=== PATIENT | female | born 1950 | race Caucasian/White ===

== ENCOUNTER 2022-02-27 15:00 | Inpatient (IN) | payer MEDICARE ==
[~2022-02-27] VITALS: Ht 162.6 cm; Wt 50.8 kg
--- NOTE | 2022-02-27 15:31 | NUR ---
CALLED ART [phone]
--- NOTE | 2022-02-27 15:32 | NUR ---
Received pt 71 yrs female here for medicale clearance awake fallow command
--- NOTE | 2022-02-27 15:54 | NUR ---
MOVE SHEET SUBMITTED.
--- NOTE | 2022-02-27 16:03 | NUR ---
GOT BED 215-A
--- NOTE | 2022-02-27 16:07 | NUR ---
COVED SWAB SENT TO LAB
[2022-02-27 16:19] LABS: BASOPHILS % (AUTO) 0.6 % (0.0-2.0); EOSINOPHILS % (AUTO) 1.1 % (0.0-6.0); HEMATOCRIT 46 % (33-45); HEMOGLOBIN 15.3 g/dL (11.5-14.8); LYMPHOCYTES # (AUTO) 1.9 K/uL (0.8-4.8); LYMPHOCYTES % (AUTO) 30.6 % (20.0-44.0); MEAN CORPUSCULAR HGB CONC 34 g/dl (31.0-36.0); MEAN CORPUSCULAR VOLUME 98 fL (82-100); MONOCYTES # (AUTO) 0.5 K/uL (0.1-1.30); MONOCYTES % (AUTO) 8.5 % (2.0-12.0); NEUTROPHILS # (AUTO) 3.7 K/uL (1.8-8.9); NEUTROPHILS % (AUTO) 59.2 % (43.0-81.0); PLATELET COUNT (AUTO) 242 K/uL (150-450); RED BLOOD CELL COUNT(AUTO) 4.69 MIL/uL (4.0-5.2); WHITE BLOOD COUNT (AUTO) 6.3 K/uL (4.3-11.0)
[2022-02-27 16:40] LABS: ALANINE AMINOTRANSFERASE 29 U/L (12-78); ALBUMIN 3.3 g/dL (3.4-5.0); ALCOHOL, BLOOD < 3 mg/dL (0-0); ALKALINE PHOSPHATASE 63 U/L (46-116); ASPARTATE AMINOTRANSFERASE 19 U/L (15-37); BILIRUBIN,DIRECT 0.1 mg/dL (0.0-0.2); BILIRUBIN,TOTAL 0.4 mg/dL (0.2-1.0); CALCIUM, SERUM 9.1 mg/dL (8.5-10.1); CARBON DIOXIDE 30 mmol/L (21-32); CHLORIDE 103 mmol/L (98-107); CREATININE 0.9 mg/dL (0.6-1.3); GLUCOSE 103 mg/dL (74-106); POTASSIUM 4.1 mmol/L (3.5-5.1); SODIUM SERUM 138 mmol/L (136-145); TOTAL PROTEIN, SERUM 6.7 g/dL (6.4-8.2); UREA NITROGEN, BLOOD 22 mg/dL (7-18)
[2022-02-27 16:43] LABS: ACETAMINOPHEN 0 ug/ml (10-30)
--- NOTE | 2022-02-27 17:15 | NUR ---
RESTING AND ASLEEPY NO PAIN PT ON 5150 AT 02/27/22 AT 1715 FOR HARMING HERE SELF AND GRAVELY DISABLE
[2022-02-27 17:54] LABS: BILIRUBIN,URINE NEGATIVE (NEGATIVE); COLOR,URINE YELLOW (YELLOW); LEUKOCYTE ESTERASE ,URINE SMALL (NEGATIVE); NITRITE, URINE NEGATIVE (NEGATIVE); PROTEIN,URINE NEGATIVE (NEGATIVE); UGLUCOSE NEGATIVE (NEGATIVE); UROBILINOGEN,URINE 0.2 EU/dL (0.2)
[2022-02-27 18:02] LABS: BACTERIA,URINE 1+ /HPF (None Seen)
--- NOTE | 2022-02-27 18:03 | NUR ---
HAND OFF NANCY SOTO TO ROOM 215 VIA GAEL DUBON VS
[2022-02-27] MEDS ORDERED: MAG HYDROX/AL HYDROX/SIMETH 30 ML UDC PO PRN (18:30)
[2022-02-27] MEDS ORDERED: ACETAMINOPHEN 325 MG TABLET PO PRN (18:30)
[2022-02-27] MEDS ORDERED: MAGNESIUM HYDROXIDE 30 ML UDC PO PRN (18:30)
[2022-02-27] MEDS ORDERED: BLOOD SUGAR DIAGNOSTIC 1 EACH STRIP IN ONE (18:30)
[2022-02-27 18:41] VITALS: BP 154/71
--- NOTE | 2022-02-27 18:54 | NUR ---
RN-NOTES PATIENT WAS BROUGHT IN THE UNIT FROM [facility] ER ER STAFF VIA WHEEL CHAIR ,AWAKE A/O X2 GUARDED,CALM NO ACUTE DISTRESS NOTED. CONTRABAND AND BELONGINGS INVENTORIED. VITAL SIGN TAKEN AND ORIENTED IN THE ROOM. PATIENT IS EATING AT THIS TIME. DR. CUEVAS ( PSYCHIATRIST) AND CHRISTO MCKEON ( CLINIC NURSE) IN THE UNIT AT THIS TIME. WILL ENDORSE TO INCOMING NURSE FOR THE ADMISSION PROCESS AND CONTINUITY OF CARE.
[2022-02-27 19:30] VITALS: BP 140/86
--- NOTE | 2022-02-27 19:30 | NUR ---
GPS RN NOTE, RECEIVED PATIENT AWAKE AND IN BED, NO S/S OR COMPLAINTS OF PAIN AT THIS TIME. PATIENT IS DISPLAYING NO S/S OF APPARENT DISTRESS AT THIS TIME. PATIENT BREATHING IS UNLABORED WITH EQUAL RISE AND FALL OF THE CHEST. PATIENT IS ALERT AND ORIENTED X 2 ON ROOM AIR WITH A SPO2 98%. PATIENT IS COMPLIANT WITH MEDICATIONS, CALM, POLITE, DISORGANIZED, FORGETFUL, AND COOPERATIVE. PATIENT DENIES SUICIDAL AND HOMICIDAL IDEATIONS AT THIS TIME. PATIENT ASSISTED WITH TURNING AND REPOSITIONING Q2HR AND PRN FOR COMFORT AND CIRCULATION. PATIENT HAS NO NEEDS AT THIS TIME. PATIENT EDUCATED ON THE USE OF THE CALL PIERRE. PATIENT BED SIDE RAILS UP X 2 FOR SAFETY. PATIENT BED IS LOCKED, LOW, WITH BED ALARM ON. WILL CONTINUE TO MONITOR THIS PATIENT Q15 MINUTES WITH THE HELP OF STAFF TO MAINTAIN SAFETY.
[2022-02-27 20:00] VITALS: BP 141/84
[2022-02-27] MEDS: LEVOFLOXACIN (250MG) 250 MG TABLET PO SCH (20:51)
[2022-02-27] MEDS ORDERED: ZOLPIDEM TARTRATE 5 MG TABLET PO PRN (22:00)
[2022-02-28 08:00] VITALS: BP 129/72
[2022-02-28 08:43] LABS: ALBUMIN 3.5 g/dL (3.4-5.0); BILIRUBIN,TOTAL 0.8 mg/dL (0.2-1.0); CALCIUM, SERUM 9.2 mg/dL (8.5-10.1); CREATININE 0.9 mg/dL (0.6-1.3); POTASSIUM 4.1 mmol/L (3.5-5.1); TOTAL PROTEIN, SERUM 7.1 g/dL (6.4-8.2)
[2022-02-28 08:46] LABS: CHOLESTEROL 199 mg/dL (<200); HDL CHOLESTEROL 85 mg/dL (40-60); LDL 96 mg/dL (0-99); TRIGLYCERIDES 103 mg/dL (30-150)
--- NOTE | 2022-02-28 10:41 | NUR ---
NURIA Initial Discharge Plan: Patient currently resides at [address] [place] [address]; ([phone]). Patient would want to return back home upon discharge. NURIA will work with the MD, family, and pt to help coordinate appropriate discharge.
--- NOTE | 2022-02-28 10:43 | NUR ---
NURIA Clinical Note: Patient placed on a 5150 hold for danger to herself. 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 Patient currently resides at [address] [place], [place] [id number]; ([phone]). Patient would want to return back home upon discharge. NURIA will work with the MD, family, and pt to help coordinate appropriate discharge.
--- NOTE | 2022-02-28 10:44 | NUR ---
Treatment Plan: Pt refused to sign treatment plan and was suspicious.
--- NOTE | 2022-02-28 12:45 | NUR ---
Dr. Cruz seen pt. and ordered Zyprexa 2.5 mg po QHS.
[2022-02-28] MEDS: LORAZEPAM 0.5 MG TABLET PO PRN (12:49)
--- NOTE | 2022-02-28 12:54 | NUR ---
RN-NOTES PATIENT IN THE ROOM GUARDED, ANXIOUS DURING FACE TO FACE ASSESSMENT. ATIVAN 1MG P.O GIVEN PRN ORDER. WILL CONT. MONITORING FOR SAFETY AND BEHAVIOR.
--- NOTE | 2022-02-28 13:50 | NUR ---
RN-NOTES PATIENT IN THE ROOM LYING IN BED AWAKE,A/O X2 CALM,NO ACUTE DISTRESS NOTED.
[2022-02-28 16:00] VITALS: BP 131/84
[2022-02-28] MEDS: ENSURE CLEAR 237 ML LIQUID (MIX BERRY) PO SCH (17:29)
--- NOTE | 2022-02-28 19:05 | NUR ---
RN-NOTES PATIENT LYING IN BED AWAKE A/O X2, GUARDED,NO ACUTE DISTRESS NOTED. PATIENT REFUSED TO PARTICIPATES IN THE GROUP ACTIVITY, PREFERS TO STAY IN THE ROOM AND REST.DENIES SI/HI THIS SHIFT.COMPLIANT WITH MEDICATIONS. ABLE TO MAKE NEEDS KNOWN TO THE STAFF AMBULATORY STEADY GAIT.WILL CONT. MONITORING FOR SAFETY AND BEHAVIOR. WILL ENDORSE TO INCOMING NURSE FOR CONTINUITY OF CARE.
--- NOTE | 2022-02-28 19:30 | NUR ---
GPS RN NOTE, RECEIVED PATIENT AWAKE AND IN BED, NO S/S OR COMPLAINTS OF PAIN AT THIS TIME. PATIENT IS DISPLAYING NO S/S OF APPARENT DISTRESS AT THIS TIME. PATIENT BREATHING IS UNLABORED WITH EQUAL RISE AND FALL OF THE CHEST. PATIENT IS ALERT AND ORIENTED X 2 ON ROOM AIR WITH A SPO2 97%. PATIENT IS COMPLIANT WITH MEDICATIONS, CALM, POLITE, DISORGANIZED, FORGETFUL, AND COOPERATIVE. PATIENT DENIES SUICIDAL AND HOMICIDAL IDEATIONS AT THIS TIME. PATIENT ASSISTED WITH TURNING AND REPOSITIONING Q2HR AND PRN FOR COMFORT AND CIRCULATION. PATIENT HAS NO NEEDS AT THIS TIME. PATIENT EDUCATED ON THE USE OF THE CALL PIERRE. PATIENT BED SIDE RAILS UP X 2 FOR SAFETY. PATIENT BED IS LOCKED, LOW, WITH BED ALARM ON. WILL CONTINUE TO MONITOR THIS PATIENT Q15 MINUTES WITH THE HELP OF STAFF TO MAINTAIN SAFETY.
[2022-02-28 20:00] VITALS: BP 124/77
[2022-02-28] MEDS: LEVOFLOXACIN (250MG) 250 MG TABLET PO SCH (20:22)
[2022-02-28] MEDS ORDERED: OLANZAPINE 2.5 MG TABLET PO SCH (22:00)
[2022-03-01 08:00] VITALS: BP 133/76
[2022-03-01] MEDS: ENSURE CLEAR 237 ML LIQUID (MIX BERRY) PO SCH ×2 (08:24→17:48)
[2022-03-01] MEDS: LORAZEPAM 0.5 MG TABLET PO PRN (08:26)
--- NOTE | 2022-03-01 10:00 | NUR ---
RN Notes: Received pt. asleep in bed, breathing is even and unlabored. Ate 100% for breakfast. Pt. is suspicious, disorganized, disheveled, anxious and tearful. Ativan prn po given, encouraged to verbalize feelings and encouraged to take shower. Needs attended and will continue to monitor for safety.
[2022-03-01 16:00] VITALS: BP 112/67
--- NOTE | 2022-03-01 19:30 | NUR ---
GPS RN NOTE, RECEIVED PATIENT AWAKE AND IN BED, NO S/S OR COMPLAINTS OF PAIN AT THIS TIME. PATIENT IS DISPLAYING NO S/S OF APPARENT DISTRESS AT THIS TIME. PATIENT BREATHING IS UNLABORED WITH EQUAL RISE AND FALL OF THE CHEST. PATIENT IS ALERT AND ORIENTED X 2 ON ROOM AIR WITH A SPO2 99%. PATIENT IS COMPLIANT WITH MEDICATIONS, CALM, POLITE, DISORGANIZED, FORGETFUL, AND COOPERATIVE. PATIENT DENIES SUICIDAL AND HOMICIDAL IDEATIONS AT THIS TIME. PATIENT ASSISTED WITH TURNING AND REPOSITIONING Q2HR AND PRN FOR COMFORT AND CIRCULATION. PATIENT HAS NO NEEDS AT THIS TIME. PATIENT EDUCATED ON THE USE OF THE CALL PIERRE. PATIENT BED SIDE RAILS UP X 2 FOR SAFETY. PATIENT BED IS LOCKED, LOW, WITH BED ALARM ON. WILL CONTINUE TO MONITOR THIS PATIENT Q15 MINUTES WITH THE HELP OF STAFF TO MAINTAIN SAFETY.
[2022-03-01] MEDS: LEVOFLOXACIN (250MG) 250 MG TABLET PO SCH (20:54)
[2022-03-01 21:00] VITALS: BP 138/77
[2022-03-01] MEDS ORDERED: OLANZAPINE 5 MG TABLET PO SCH (22:00)
[2022-03-02 08:00] VITALS: BP 132/88
[2022-03-02 16:00] VITALS: BP 139/72
[2022-03-02] MEDS: ENSURE CLEAR 237 ML LIQUID (MIX BERRY) PO SCH (18:02)
[2022-03-02] MEDS: LEVOFLOXACIN (250MG) 250 MG TABLET PO SCH (20:19)
[2022-03-02 20:23] VITALS: BP 152/94
[2022-03-02] MEDS: OLANZAPINE 2.5 MG TABLET PO SCH (21:43)
[2022-03-03] MEDS: ENSURE CLEAR 237 ML LIQUID (MIX BERRY) PO SCH ×2 (07:57→17:20)
[2022-03-03 08:00] VITALS: BP 132/76
[2022-03-03 16:00] VITALS: BP 133/80
[2022-03-03] MEDS: LEVOFLOXACIN (250MG) 250 MG TABLET PO SCH (20:07)
[2022-03-03 20:11] VITALS: BP 100/67
[2022-03-03] MEDS: OLANZAPINE 2.5 MG TABLET PO SCH (22:25)
[2022-03-04 08:00] VITALS: BP 114/68
[2022-03-04] MEDS: ENSURE CLEAR 237 ML LIQUID (MIX BERRY) PO SCH ×2 (08:12→16:43)
[2022-03-04 16:05] VITALS: BP 125/78
--- NOTE | 2022-03-04 18:55 | NUR ---
GPS END OF SHIFT REPORT PATIENT AWAKE AND ABLE TO NEEDS KNOWN , COMPLIANT WIITH CARE AND ATTEND ACTIVITIES IN THE MORNING AND AFTER NOON , NO BEAHAVIOR NOTED , ALL NEEDS ATTENDED NO DUE MEDS GIVEN FOR THE WHOLE SHIFT , ALL NEEDS ATTENDED
[2022-03-04 20:20] VITALS: BP 139/77
[2022-03-04] MEDS: OLANZAPINE 2.5 MG TABLET PO SCH (21:16)
[2022-03-05 08:00] VITALS: BP 139/74
[2022-03-05] MEDS: ENSURE CLEAR 237 ML LIQUID (MIX BERRY) PO SCH ×2 (08:05→17:37)
--- NOTE | 2022-03-05 09:12 | NUR ---
Court Notification: Pt does not have any supportive contact at this time to notify of 0103 hearing.
--- NOTE | 2022-03-05 11:17 | NUR ---
SNF Referral: NURIA sent clinicals to Katina duncan from [place] for SNF ([phone]) placement. NURIA sent H & P, progress notes, and medication list.
--- NOTE | 2022-03-05 11:46 | NUR ---
Court Hearing: Patient's court hearing for 5250 was today and it was upheld for danger to self and GD.
--- NOTE | 2022-03-05 13:14 | NUR ---
NURIA Note: SW contacted pt's school that she worked at [employer] [phone] and spoke with colleague Vinayak who stated that pt has a brother but unsure of his number. 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 He did not have any further information about pt history.
--- NOTE | 2022-03-05 13:28 | NUR ---
SNF Contact: SW spoke with Katina duncan from [facility] ([phone]) who stated that pt is accepted.
--- NOTE | 2022-03-05 14:35 | NUR ---
NURIA Family Contact: NURIA received a call from pt's brother Aubrey ([phone]) who stated that he was trying to locate pt. He reported that pt lives at home but is unsure if she will function at home independently. NURIA shared that she is accepted at a nursing facility [facility] and he was agreeable of this. He stated that he had paid for pt's rent and is taking care of her finances. He stated that this is pt's first episode and he stated she has never been paranoid. He reported she has always just be a emotional person and has been overly excited. Addendum: 03/05/22 at 1442 by NURIA RUBIO Sherif is the name
[2022-03-05 16:00] VITALS: BP 129/87
[2022-03-05 19:47] VITALS: BP 135/77
[2022-03-05] MEDS: OLANZAPINE 2.5 MG TABLET PO SCH (21:31)
[2022-03-06 08:00] VITALS: BP 126/70
[2022-03-06] MEDS: ENSURE CLEAR 237 ML LIQUID (MIX BERRY) PO SCH ×2 (08:00→16:58)
[2022-03-06 16:00] VITALS: BP 117/70
--- NOTE | 2022-03-06 18:26 | NUR ---
RN-NOTES PATIENT VISIBLE IN THE UNIT,ATTENDED GROUPS A/O X2,CALM,COOPERATIVE, COMPLIANT WITH MEDICATION,NO ACUTE DISTRESS NOTED. AMBULATORY STEADY GAIT. ALL NEEDS ATTENDED AND ANTICIPATED.WILL CONT. MONITORING FOR SAFETY AND BEHAVIOR.WILL ENDORSE TO INCOMING NURSE FOR CONTINUITY OF CARE.
[2022-03-06 20:00] VITALS: BP 152/78
[2022-03-06] MEDS: OLANZAPINE 2.5 MG TABLET PO SCH (21:14)
[2022-03-07 08:00] VITALS: BP 131/76
[2022-03-07] MEDS: ENSURE CLEAR 237 ML LIQUID (MIX BERRY) PO SCH ×2 (08:22→17:57)
--- NOTE | 2022-03-07 09:35 | NUR ---
RN Notes: Received pt. asleep in bed, breathing is even and unlabored. Pt. ate breakfast and responsive to staffs. Pt. isolates in room, quiet and with depressed mood. Encouraged to verbalize feelings and motivated to attend group activity. No distress and no agitation noted. Will continue to monitor for safety.
[2022-03-07 16:00] VITALS: BP 130/76
--- NOTE | 2022-03-07 19:30 | NUR ---
GPS RN NOTE, RECEIVED PATIENT AWAKE AND IN BED, NO S/S OR COMPLAINTS OF PAIN AT THIS TIME. PATIENT IS DISPLAYING NO S/S OF APPARENT DISTRESS AT THIS TIME. PATIENT BREATHING IS UNLABORED WITH EQUAL RISE AND FALL OF THE CHEST. PATIENT IS ALERT AND ORIENTED X 2 ON ROOM AIR WITH A SPO2 96%. PATIENT IS COMPLIANT WITH MEDICATIONS, CALM, POLITE, DISORGANIZED, FORGETFUL, AND COOPERATIVE. PATIENT DENIES SUICIDAL AND HOMICIDAL IDEATIONS AT THIS TIME. PATIENT ASSISTED WITH TURNING AND REPOSITIONING Q2HR AND PRN FOR COMFORT AND CIRCULATION. PATIENT HAS NO NEEDS AT THIS TIME. PATIENT EDUCATED ON THE USE OF THE CALL PIERRE. PATIENT BED SIDE RAILS UP X 2 FOR SAFETY. PATIENT BED IS LOCKED, LOW, WITH BED ALARM ON. WILL CONTINUE TO MONITOR THIS PATIENT Q15 MINUTES WITH THE HELP OF STAFF TO MAINTAIN SAFETY.
[2022-03-07 20:03] VITALS: BP 144/72
[2022-03-07] MEDS: OLANZAPINE 2.5 MG TABLET PO SCH (21:30)
[2022-03-08 08:00] VITALS: BP 112/68
[2022-03-08] MEDS: ENSURE CLEAR 237 ML LIQUID (MIX BERRY) PO SCH (08:19)
--- NOTE | 2022-03-08 09:30 | NUR ---
RN Notes: Received pt. asleep in bed, breathing is even and unlabored. Pt. ate 100% breakfast and responsive to staffs. Pt. isolates in room, quiet and with depressed mood. Pt. interacts with room mate. Encouraged to verbalize feelings and motivated to attend group activity. No distress and no agitation noted. Will continue to monitor for safety.
[2022-03-08 16:00] VITALS: BP 124/76
[2022-03-08] MEDS: ENSURE ENLIVE 237 ML LIQUID (VANILLA) PO SCH (17:23)
[2022-03-08 20:00] VITALS: BP 127/74
[2022-03-08] MEDS: OLANZAPINE 2.5 MG TABLET PO SCH (21:41)
[2022-03-09 08:00] VITALS: BP 126/59
[2022-03-09] MEDS: ENSURE ENLIVE 237 ML LIQUID (VANILLA) PO SCH ×2 (08:23→17:40)
[2022-03-09 16:00] VITALS: BP_SYST 100; BP_SYST 126; BP_DIAS 53; BP_DIAS 76
[2022-03-09 20:18] VITALS: BP 128/77
[2022-03-09] MEDS: OLANZAPINE 2.5 MG TABLET PO SCH (21:19)
[2022-03-10 08:00] VITALS: BP 110/63
[2022-03-10] MEDS: ENSURE ENLIVE 237 ML LIQUID (VANILLA) PO SCH ×2 (09:29→17:16)
[2022-03-10 16:00] VITALS: BP 127/74
[2022-03-10 19:38] VITALS: BP 105/60
[2022-03-10] MEDS: OLANZAPINE 2.5 MG TABLET PO SCH (21:11)
[2022-03-11 08:00] VITALS: BP 120/74
[2022-03-11] MEDS: ENSURE ENLIVE 237 ML LIQUID (VANILLA) PO SCH ×2 (08:51→17:20)
[2022-03-11 16:00] VITALS: BP 134/84
[2022-03-11 19:29] VITALS: BP 119/76
[2022-03-11] MEDS: OLANZAPINE 2.5 MG TABLET PO SCH (21:38)
[2022-03-12 08:00] VITALS: BP 133/76
[2022-03-12] MEDS: ENSURE ENLIVE 237 ML LIQUID (VANILLA) PO SCH ×2 (09:10→17:35)
[2022-03-12 16:27] VITALS: BP 122/73
[2022-03-12 20:08] VITALS: BP 126/55
[2022-03-12] MEDS: OLANZAPINE 2.5 MG TABLET PO SCH (21:25)
[2022-03-13 08:00] VITALS: BP 132/84
[2022-03-13] MEDS: ENSURE ENLIVE 237 ML LIQUID (VANILLA) PO SCH ×2 (08:52→17:05)
[2022-03-13 16:00] VITALS: BP 127/87
--- NOTE | 2022-03-13 18:29 | NUR ---
RN-NOTES PATIENT VISIBLE IN THE UNIT PARTICIPATING IN THE ACTIVITY GROUPS,A/O X2 ,CALM,NO ACUTE DISTRESS NOTED.COMPLIANT WITH MEDICATIONS.AMBULATORY STEADY GAIT.ALL NEEDS ATTENDED AND ANTICIPATED. WILL CONT. MONITORING FOR SAFETY AND BEHAVIOR.WILL ENDORSE TO INCOMING NURSE FOR CONTINUITY OF CARE.
[2022-03-13 20:00] VITALS: BP 129/80
[2022-03-13] MEDS: OLANZAPINE 2.5 MG TABLET PO SCH (21:21)
[2022-03-14 08:00] VITALS: BP 113/70
--- NOTE | 2022-03-14 08:03 | NUR ---
SW Discharge Note: Patient will be discharged to retirement facility, [facility], located at [facility] [place] [address] ([phone]). Please arrange ambulance transportation at 1PM. hollow handle bench worker spoke with Katina duke ([phone]), who stated patient will be accepted at the facility today. Patients brother Sherif ([phone]) is aware and agreeable. Patient is alert and oriented x2 and is unable to plan for self-care. Patient denies any suicidal or homicidal ideation. Patient is aware and agreeable with discharge plans. Patient will follow-up at the facility with Dr. Mensah (psychiatrist) [address] [address]; ([phone]) and (Associate Sales Representative) Dr. Ryan [address] [facility] [address], [place] [address]; ([phone]).
[2022-03-14] MEDS: ENSURE ENLIVE 237 ML LIQUID (VANILLA) PO SCH (08:35)
--- NOTE | 2022-03-14 08:42 | NUR ---
Dr. Cruz gave an order to D/C hold and D/C to [facility] and to follow up with psych medical doctors. Dr. Cruz reconciled on meds to continue in the facility.
--- NOTE | 2022-03-14 13:58 | NUR ---
GPS/RN PT DISCHARGED TO [facility] [phone] REPORT GIVEN TO NADJA SOTO. PROPERTY RETURNED. EXIT CARE INSTRUCTIONS AND MEDS LIST GIVEN AND UNDERSTOOD. PT IS AMBULATORY NO SI OR HI AT THE TIME OF DISCHARGE.LEFT VIA AMBULANCE
[2022-03-14] MEDS ORDERED: LEVOFLOXACIN 500 MG /D5W 100ML 100 ML IV ONE (18:24)
[2022-03-14] MEDS ORDERED: DEXAMETHASONE SOD PHOSPHATE 10 MG/ML VIAL ONE (18:27)
== END 2022-03-14 13:55 | DRG 885 ==
LOC: ER 15:26 → GPS 16:38
PROVIDERS: ADMIT Psychiatry & Neurology Psychiatry; ATTEND Registered Nurse
DX: F29 Unspecified psychosis not due to a substance or known physiological condition (principal); N39.0 Urinary tract infection, site not specified; E44.0 Moderate protein-calorie malnutrition; Z68.1 Body mass index [BMI] 19.9 or less, adult; F02.84 Dementia in other diseases classified elsewhere, unspecified severity, with anxiety; F02.82 Dementia in other diseases classified elsewhere, unspecified severity, with psychotic disturbance; Z73.6 Limitation of activities due to disability; F32.A Depression, unspecified; G30.9 Alzheimer's disease, unspecified; B96.89 Other specified bacterial agents as the cause of diseases classified elsewhere; F25.0 Schizoaffective disorder, bipolar type
CPT/HCPCS: 36415; 80048-TC; 80053-TC; 80061-TC; 80076-TC; 81001; 82962-TC; 85025-TC; 87086-TC; G0480; J1100; J1956

== ENCOUNTER 2022-08-05 15:03 | Inpatient (IN) | payer MEDICARE ==
[~2022-08-05] VITALS: Ht 172.7 cm; Wt 45.4 kg
--- NOTE | 2022-08-05 15:10 | NUR ---
HUGO KIM FROM [facility], REFUSING MEDICATION AND FOOD, AND INCREASED CONFUSION . PLACED IN BED, AAOX3- RESPONDING TO QUESTION AND ANSWERS CORECTLY, COOPERATIVE.
--- NOTE | 2022-08-05 15:24 | NUR ---
AT BEDSIDE FOR EVAL.
[2022-08-05] MEDS ORDERED: GUAI-717 PO (15:32)
[2022-08-05] MEDS ORDERED: OLAN5TAB3 PO (15:32)
[2022-08-05] MEDS ORDERED: ACET-868 PO (15:32)
[2022-08-05] MEDS ORDERED: MEGE400O4 PO (15:32)
--- NOTE | 2022-08-05 15:50 | NUR ---
OCEAN FREIGHT AGENT AT BEDSIDE
--- NOTE | 2022-08-05 16:01 | NUR ---
SWAB FOR COVID19 SENT TO LAB
[2022-08-05 16:04] LABS: BASOPHILS % (AUTO) 0.3 % (0.0-2.0); HEMATOCRIT 51 % (33-45); HEMOGLOBIN 17.5 g/dL (11.5-14.8); LYMPHOCYTES # (AUTO) 1.2 K/uL (0.8-4.8); MEAN CORPUSCULAR HGB CONC 34 g/dl (31.0-36.0); MEAN CORPUSCULAR VOLUME 96 fL (82-100); MONOCYTES # (AUTO) 0.3 K/uL (0.1-1.30); MONOCYTES % (AUTO) 5.3 % (2.0-12.0); NEUTROPHILS % (AUTO) 72.4 % (43.0-81.0); PLATELET COUNT (AUTO) 241 K/uL (150-450); RED BLOOD CELL COUNT(AUTO) 5.33 MIL/uL (4.0-5.2); WHITE BLOOD COUNT (AUTO) 5.5 K/uL (4.3-11.0)
--- NOTE | 2022-08-05 16:08 | NUR ---
URINE SAMPLE SENT TO LAB
[2022-08-05 16:22] LABS: ALBUMIN 4.6 g/dL (3.4-5.0); ALCOHOL, BLOOD < 3 mg/dL (0-0); ALKALINE PHOSPHATASE 66 U/L (46-116); ASPARTATE AMINOTRANSFERASE 30 U/L (15-37); BILIRUBIN,DIRECT 0.3 mg/dL (0.0-0.2); CALCIUM, SERUM 10.1 mg/dL (8.5-10.1); CARBON DIOXIDE 25 mmol/L (21-32); CHLORIDE 111 mmol/L (98-107); CREATININE 1.3 mg/dL (0.6-1.3); GLUCOSE 108 mg/dL (74-106); POTASSIUM 3.6 mmol/L (3.5-5.1); SODIUM SERUM 149 mmol/L (136-145); TOTAL PROTEIN, SERUM 8.6 g/dL (6.4-8.2); UREA NITROGEN, BLOOD 40 mg/dL (7-18)
[2022-08-05 16:24] LABS: ACETAMINOPHEN < 10 ug/ml (10-30)
[2022-08-05 16:37] LABS: ALANINE AMINOTRANSFERASE 37 U/L (12-78)
[2022-08-05] MEDS ORDERED: IV NS 0.9% 1,000 ML BAG IV ONE (17:00)
[2022-08-05 17:14] LABS: BILIRUBIN,URINE 1+ (NEGATIVE); COLOR,URINE YELLOW (YELLOW); LEUKOCYTE ESTERASE ,URINE NEGATIVE (NEGATIVE); NITRITE, URINE NEGATIVE (NEGATIVE); PROTEIN,URINE TRACE mg/dl (NEGATIVE); UGLUCOSE NEGATIVE (NEGATIVE); UROBILINOGEN,URINE 0.2 EU/dL (0.2)
[2022-08-05 18:06] LABS: BACTERIA,URINE Few /HPF (None Seen); SQUAMOUS EPITHELIAL CELL,UR Few /HPF (None Seen); WBC,URINE NONE SEEN /HPF (0-3)
[2022-08-05] MEDS ORDERED: ACETAMINOPHEN 325 MG TABLET PO PRN ×2 (19:30→22:30)
--- NOTE | 2022-08-05 20:35 | NUR ---
REPORT GIVEN TO RENALYN RN ROOM 211 FOR VERONICA
--- NOTE | 2022-08-05 22:12 | NUR ---
pt [facility] with emt at bedside. nad noted. pt is in stable condition.
--- NOTE | 2022-08-05 22:15 | NUR ---
GPS SKIN SPECIALIST NOTES ADMITTED 72 Y/O FEMALE FROM [facility] AND EVALUATED FROM [facility] DUE TO INCREASED AGITATION AND CONFUSION. PATIENT ADMITTING DX, PSYCHOSIS NOS. UPON FACE TO FACE EVALUATION, PATIENT IS CALM, CONFUSED, DISORIENTED AND DELUSIONAL. A/O X 1. HEAD AND TOE ASSESSMENT DONE. PATIENT UNABLE TO SIGN PAPER WORKS. NO SOB, NO ACUTE DISTRESS, BREATHING EVEN AND UNLABORED, NO S/S OF PAIN AND DISCOMFORT. PATIENT IS UNDER THE CARE OF DR. MATTSON. BELONGINGS COLLECTED FOR CONTRABAND CHECK. NOTIFIED MARCY RIDER TO RECONCILE MEDICATION. NOTIFIED RESPONSIBLE CONSTITUTION PARTY OF THE ADMISSION. KEPT CLEAN, DRY AND COMFORTABLE. WILL CONTINUE TO MONITOR Q15 MINS FOR SAFETY.
[2022-08-05] MEDS ORDERED: TEMAZEPAM 7.5 MG CAPSULE PO PRN (22:30)
[2022-08-05] MEDS ORDERED: MAG HYDROX/AL HYDROX/SIMETH 30 ML UDC PO PRN (22:30)
[2022-08-05] MEDS ORDERED: LORAZEPAM 0.5 MG TABLET PO PRN (22:30)
[2022-08-05] MEDS ORDERED: BLOOD SUGAR DIAGNOSTIC 1 EACH STRIP IN ONE (22:30)
[2022-08-05] MEDS ORDERED: MAGNESIUM HYDROXIDE 30 ML UDC PO PRN (22:30)
[2022-08-05] MEDS ORDERED: GUAIFENESIN/D-METHORPHAN HB 5 ML UDC PO PRN (23:00)
[2022-08-05] MEDS ORDERED: ZOLPIDEM TARTRATE 5 MG TABLET PO PRN (23:30)
[2022-08-06 07:18] LABS: CREATININE 0.8 mg/dL (0.6-1.3)
[2022-08-06 08:00] VITALS: BP 129/76
[2022-08-06 08:01] LABS: CHOLESTEROL 182 mg/dL (<200); HDL CHOLESTEROL 55 mg/dL (40-60); LDL 115 mg/dL (0-99); TRIGLYCERIDES 76 mg/dL (30-150)
[2022-08-06] MEDS: MEGESTROL ACETATE SUSP 400 MG/10 ML UDC PO SCH ×2 (09:10→17:14)
--- NOTE | 2022-08-06 09:31 | NUR ---
Treatment Plan: Pt confused and refused to sign treatment plan.
--- NOTE | 2022-08-06 09:31 | NUR ---
NURIA Clinical Note: Pt placed on a 5150 hold for GD. Pt was agitated and paranoid at the facility assuming that she is being poisoned. Patient currently resides at [facility], located at [address] [place] [address] ([phone]). NURIA spoke with Katina Montalvo who stated that pt is welcomed back.
--- NOTE | 2022-08-06 09:31 | NUR ---
NURIA Initial Discharge Plan: Patient currently resides at [facility], located at [address] [place] [address] ([phone]). NURIA spoke with Katina Montalvo who stated that pt is welcomed back. NURIA will work with the MD, family, and treatment team.
--- NOTE | 2022-08-06 15:12 | NUR ---
SW Family: SW attempted to contact pt's brother Aubrey ([phone]) but the phone number did not work.
[2022-08-06 16:00] VITALS: BP 129/74
--- NOTE | 2022-08-06 16:35 | NUR ---
RN- NOTES PATIENT REFUSED MRSA SWAB OF THE NARES, EDUCATION AND ENCOURAGEMENT X3 GIVEN, PATIENT CONTINUES TO REFUSE.
[2022-08-06] MEDS: OLANZAPINE 2.5 MG TABLET PO SCH (17:15)
[2022-08-06] MEDS: ENSURE ENLIVE 237 ML LIQUID (VANILLA) PO SCH (17:15)
[2022-08-06 20:00] VITALS: BP 107/60
[2022-08-06 20:37] VITALS: BP 107/60
[2022-08-06] MEDS: MIRTAZAPINE 15 MG TABLET PO SCH (21:22)
--- NOTE | 2022-08-07 06:35 | NUR ---
PATIENT SLEEPING, EASY TO AROUSE. ABLE TO VERBALIZE NEEDS. A/O X2-3. QUIET, ISOLATIVE, GUARDED, SUSPICIOUS, PARANOID. NO SOB OR NOTED. NO C/O PAIN. NO SI/HI AT THIS TIME. SAFETY PRECAUTIONS IN PLACE. WILL ENDORSE TO NEXT SHIFT FOR CONTINUITY OF CARE.
[2022-08-07 08:00] VITALS: BP 118/74
[2022-08-07] MEDS: ENSURE ENLIVE 237 ML LIQUID (VANILLA) PO SCH ×2 (08:44→17:19)
[2022-08-07] MEDS: MEGESTROL ACETATE SUSP 400 MG/10 ML UDC PO SCH ×2 (09:35→17:01)
[2022-08-07] MEDS: OLANZAPINE 2.5 MG TABLET PO SCH ×2 (09:36→17:02)
[2022-08-07 16:00] VITALS: BP 107/61
[2022-08-07 20:00] VITALS: BP 104/62
[2022-08-08] MEDS: MIRTAZAPINE 15 MG TABLET PO SCH ×2 (00:47→21:17)
--- NOTE | 2022-08-08 01:04 | NUR ---
DIRECTOR BIOMEDICAL ENGINEERING NOTES:RECEIVED PATIENT SLEEPING, EASY TO AROUSE. BREATHING EVEN AND NON-LABORED.MEDICATION COMPLIANT.ABLE TO VERBALIZE NEEDS. A/O X2-3. QUIET, ISOLATIVE, GUARDED, SUSPICIOUS, PARANOID. NO SOB OR NOTED. NO C/O PAIN. NO SI/HI AT THIS TIME. SAFETY PRECAUTIONS IN PLACE. WILL ENDORSE TO NEXT SHIFT FOR CONTINUITY OF CARE.
[2022-08-08 08:00] VITALS: BP 99/61
[2022-08-08] MEDS: OLANZAPINE 2.5 MG TABLET PO SCH ×2 (08:07→16:34)
[2022-08-08] MEDS: MEGESTROL ACETATE SUSP 400 MG/10 ML UDC PO SCH ×2 (08:07→16:34)
[2022-08-08] MEDS: ENSURE ENLIVE 237 ML LIQUID (VANILLA) PO SCH ×2 (08:08→17:36)
--- NOTE | 2022-08-08 09:20 | NUR ---
RN Notes: Received pt. asleep in bed, breathing is even and unlabored. Ate 50% for breakfast and compliant on meds. Pt. interacts to staff minimally and with flat affect. Pt. eas encouraged to verbalize feelings and motivated to attend group activity. Needs attended and will continue to monitor for safety.
[2022-08-08 16:00] VITALS: BP 95/61
--- NOTE | 2022-08-08 19:33 | NUR ---
RETAIL ASSET PROTECTION SPECIALIST NOTES:RECEIVED PATIENT IN BED AWAKE APPEAR CALM AND RELAX. BREATHING EVEN AND NON-LABORED. A/O X2-3. ABLE TO VERBALIZED NEEDS.RESIDENT IS MEDICATION COMPLIANT.QUIET, ISOLATIVE, GUARDED, SUSPICIOUS, PARANOID. NO ACUTE DISTRESS NOTED. .COOPERATIVE TO CARE .NO C/O PAIN. NO SI/HI AT THIS TIME. SAFETY PRECAUTIONS IN PLACE. WILL CONTINUE TO MONITOR FOR SAFETY AND BEHAVIOR
[2022-08-08 20:00] VITALS: BP 100/62
[2022-08-09 08:00] VITALS: BP 97/58
[2022-08-09] MEDS: OLANZAPINE 2.5 MG TABLET PO SCH (08:08)
[2022-08-09] MEDS: MEGESTROL ACETATE SUSP 400 MG/10 ML UDC PO SCH ×2 (08:08→16:18)
[2022-08-09] MEDS: ENSURE ENLIVE 237 ML LIQUID (VANILLA) PO SCH ×2 (08:09→17:20)
[2022-08-09] MEDS ORDERED: OLANZAPINE 2.5 MG TABLET PO SCH (11:30)
[2022-08-09 16:00] VITALS: BP 97/57
--- NOTE | 2022-08-09 19:37 | NUR ---
SUPERVISOR DOCK NOTES:RECEIVED PATIENT ASLEEP COMFORTABLY IN BED IN NO ACUTE DISTRESS. BREATHING EVEN AND NON-LABORED. A/O X2-3. ABLE TO VERBALIZED NEEDS.RESIDENT IS MEDICATION COMPLIANT.QUIET, ISOLATIVE, GUARDED, SUSPICIOUS, PARANOID. NO ACUTE DISTRESS NOTED.COOPERATIVE TO CARE .NO C/O PAIN AT THIS TIME. SAFETY PRECAUTIONS IN PLACE. WILL CONTINUE TO MONITOR Q15,CHECK FOR SAFETY AND BEHAVIOR
[2022-08-09 20:00] VITALS: BP 100/55
[2022-08-09] MEDS: MIRTAZAPINE 15 MG TABLET PO SCH (21:31)
[2022-08-09] MEDS: OLANZAPINE 5 MG TABLET PO SCH (21:31)
[2022-08-10 08:00] VITALS: BP 108/67
[2022-08-10] MEDS: ENSURE ENLIVE 237 ML LIQUID (VANILLA) PO SCH ×2 (08:06→16:44)
[2022-08-10] MEDS: MEGESTROL ACETATE SUSP 400 MG/10 ML UDC PO SCH ×2 (08:56→16:44)
[2022-08-10] MEDS: OLANZAPINE 2.5 MG TABLET PO SCH (08:56)
[2022-08-10 16:00] VITALS: BP 102/58
[2022-08-10 20:03] VITALS: BP 105/61
[2022-08-10] MEDS: MIRTAZAPINE 15 MG TABLET PO SCH (21:07)
[2022-08-10] MEDS: OLANZAPINE 5 MG TABLET PO SCH (21:07)
[2022-08-11 08:00] VITALS: BP 121/66
[2022-08-11] MEDS: OLANZAPINE 2.5 MG TABLET PO SCH (08:02)
[2022-08-11] MEDS: ENSURE ENLIVE 237 ML LIQUID (VANILLA) PO SCH ×2 (08:02→17:15)
[2022-08-11] MEDS: MEGESTROL ACETATE SUSP 400 MG/10 ML UDC PO SCH ×2 (08:02→17:15)
--- NOTE | 2022-08-11 12:06 | NUR ---
Court Hearing: Patient's court hearing for 5540 was today and it was upheld for GD.
--- NOTE | 2022-08-11 12:06 | NUR ---
Court Notification: SW unable to contact pt's brother Aubrey ([phone]) due to phone number not existing.
[2022-08-11 16:00] VITALS: BP 101/58
[2022-08-11 19:48] VITALS: BP 128/74
[2022-08-11] MEDS: OLANZAPINE 5 MG TABLET PO SCH (21:16)
[2022-08-11] MEDS: MIRTAZAPINE 15 MG TABLET PO SCH (21:16)
[2022-08-12 08:00] VITALS: BP 101/75
[2022-08-12] MEDS: MEGESTROL ACETATE SUSP 400 MG/10 ML UDC PO SCH ×2 (08:37→16:06)
[2022-08-12] MEDS: OLANZAPINE 2.5 MG TABLET PO SCH (08:37)
[2022-08-12] MEDS: ENSURE ENLIVE 237 ML LIQUID (VANILLA) PO SCH ×2 (08:37→16:06)
[2022-08-12 16:00] VITALS: BP 102/55
[2022-08-12 20:08] VITALS: BP 109/62
[2022-08-12] MEDS: OLANZAPINE 5 MG TABLET PO SCH (21:00)
[2022-08-12] MEDS: MIRTAZAPINE 15 MG TABLET PO SCH (21:00)
[2022-08-13 08:00] VITALS: BP 110/60
[2022-08-13] MEDS: ENSURE ENLIVE 237 ML LIQUID (VANILLA) PO SCH ×2 (08:31→16:14)
[2022-08-13] MEDS: OLANZAPINE 2.5 MG TABLET PO SCH ×2 (08:32→16:16)
[2022-08-13] MEDS: MEGESTROL ACETATE SUSP 400 MG/10 ML UDC PO SCH ×3 (08:32→16:16)
[2022-08-13 16:00] VITALS: BP 108/61
[2022-08-13 20:08] VITALS: BP 112/57
[2022-08-13] MEDS: OLANZAPINE 5 MG TABLET PO SCH (21:11)
[2022-08-13] MEDS: MIRTAZAPINE 15 MG TABLET PO SCH (21:12)
[2022-08-14 08:00] VITALS: BP 104/66
[2022-08-14] MEDS: MEGESTROL ACETATE SUSP 400 MG/10 ML UDC PO SCH ×2 (08:54→17:00)
[2022-08-14] MEDS: ENSURE ENLIVE 237 ML LIQUID (VANILLA) PO SCH ×2 (08:54→17:18)
[2022-08-14] MEDS: OLANZAPINE 2.5 MG TABLET PO SCH ×2 (08:54→17:18)
[2022-08-14 16:00] VITALS: BP 105/68
--- NOTE | 2022-08-14 19:05 | NUR ---
RN-NOTES PATIENT IS VISIBLE IN THE UNIT ,A/OX2 CALM,NO ACUTE DISTRESS NOTED.COMPLIANT WITH MEDICATION. ABLE TO MAKE NEEDS KNOWN TO THE STAFF. PREFERS TO STAY IN THE ROOM AND REST,REFUSED GROUPS.ALL NEEDS ATTENDED AND ANTICIPATED. WILL CONT. MONITORING FOR SAFETY AND BEHAVIOR.WILL ENDORSE TO INCOMING NURSE FOR THE CONTINUITY OF CARE.
--- NOTE | 2022-08-14 19:30 | NUR ---
GPS RN NOTE, RECEIVED PATIENT AWAKE AND IN BED, NO S/S OR COMPLAINTS OF PAIN AT THIS TIME. PATIENT IS DISPLAYING NO S/S OF APPARENT DISTRESS AT THIS TIME. PATIENT BREATHING IS UNLABORED WITH EQUAL RISE AND FALL OF THE CHEST. PATIENT IS ALERT AND ORIENTED X 2-3 ON ROOM AIR WITH A SPO2 98%. PATIENT IS COMPLIANT WITH MEDICATIONS, PARANOID, ANXIOUS AT TIMES, MAKES NEEDS KNOWN, AND COOPERATIVE. PATIENT DENIES SUICIDAL AND HOMICIDAL IDEATIONS AT THIS TIME. PATIENT ASSISTED WITH TURNING AND REPOSITIONING Q2HR AND PRN FOR COMFORT AND CIRCULATION. PATIENT HAS NO NEEDS AT THIS TIME. PATIENT EDUCATED ON THE USE OF THE CALL PIERRE. PATIENT BED SIDE RAILS UP X 2 FOR SAFETY. PATIENT BED IS LOCKED, LOW, WITH BED ALARM ON. WILL CONTINUE TO MONITOR THIS PATIENT Q15 MINUTES WITH THE HELP OF STAFF TO MAINTAIN SAFETY.
[2022-08-14 20:17] VITALS: BP 125/72
[2022-08-14] MEDS: MIRTAZAPINE 15 MG TABLET PO SCH (21:20)
[2022-08-14] MEDS: OLANZAPINE 5 MG TABLET PO SCH (21:20)
[2022-08-15 08:00] VITALS: BP 106/61
[2022-08-15] MEDS: OLANZAPINE 2.5 MG TABLET PO SCH ×2 (08:04→16:08)
[2022-08-15] MEDS: ENSURE ENLIVE 237 ML LIQUID (VANILLA) PO SCH ×2 (08:04→16:08)
[2022-08-15] MEDS: MEGESTROL ACETATE SUSP 400 MG/10 ML UDC PO SCH (08:05)
--- NOTE | 2022-08-15 08:59 | NUR ---
Dr. Wick in the unit and made aware that pt. refused to take Megace and ordered to d/c Megace.
--- NOTE | 2022-08-15 09:45 | NUR ---
RN Notes: Received pt. awake in bed, quiet, reponsive to staffs. Ate 100% for breakfast, refused to take Megace because of the taste and compliant on the rest of the meds. Dr. Wick made aware that pt. refused to take Megace and ordered to d/c Megace. Encouraged to verbalize feelings and encouraged to attend group activity. Pt. isolates in the room and no social interactions. Needs attended and will continue to monitor for safety.
[2022-08-15 16:00] VITALS: BP 114/73
--- NOTE | 2022-08-15 17:19 | NUR ---
RN-NOTES PATIENT IS VISIBLE IN THE UNIT ,A/OX2 CALM,NO ACUTE DISTRESS NOTED.COMPLIANT WITH MEDICATION. ABLE TO MAKE NEEDS KNOWN TO THE STAFF.ENCOURAGED TO PARTICIPATES WITH GROUPS BUT PREFERS TO STAY IN THE ROOM AND REST.ALL NEEDS ATTENDED AND ANTICIPATED. WILL CONT. MONITORING FOR SAFETY AND BEHAVIOR.WILL ENDORSE TO INCOMING NURSE FOR THE CONTINUITY OF CARE.
--- NOTE | 2022-08-15 19:30 | NUR ---
GPS RN NOTE, RECEIVED PATIENT AWAKE AND IN BED, NO S/S OR COMPLAINTS OF PAIN AT THIS TIME. PATIENT IS DISPLAYING NO S/S OF APPARENT DISTRESS AT THIS TIME. PATIENT BREATHING IS UNLABORED WITH EQUAL RISE AND FALL OF THE CHEST. PATIENT IS ALERT AND ORIENTED X 2-3 ON ROOM AIR WITH A SPO2 97%. PATIENT IS COMPLIANT WITH MEDICATIONS, PARANOID, ANXIOUS AT TIMES, MAKES NEEDS KNOWN, AND COOPERATIVE. PATIENT DENIES SUICIDAL AND HOMICIDAL IDEATIONS AT THIS TIME. PATIENT ASSISTED WITH TURNING AND REPOSITIONING Q2HR AND PRN FOR COMFORT AND CIRCULATION. PATIENT HAS NO NEEDS AT THIS TIME. PATIENT EDUCATED ON THE USE OF THE CALL PIERRE. PATIENT BED SIDE RAILS UP X 2 FOR SAFETY. PATIENT BED IS LOCKED, LOW, WITH BED ALARM ON. WILL CONTINUE TO MONITOR THIS PATIENT Q15 MINUTES WITH THE HELP OF STAFF TO MAINTAIN SAFETY.
[2022-08-15 20:00] VITALS: BP 125/69
[2022-08-15] MEDS: MIRTAZAPINE 15 MG TABLET PO SCH (21:20)
[2022-08-15] MEDS: OLANZAPINE 5 MG TABLET PO SCH (21:20)
[2022-08-16 08:00] VITALS: BP 114/64
[2022-08-16] MEDS: ENSURE ENLIVE 237 ML LIQUID (VANILLA) PO SCH ×2 (08:01→17:10)
[2022-08-16] MEDS: OLANZAPINE 2.5 MG TABLET PO SCH ×2 (08:01→16:37)
[2022-08-16 16:06] VITALS: BP 126/71
--- NOTE | 2022-08-16 19:39 | NUR ---
SENIOR INFORMATICA ETL DEVELOPER NOTES RECEIVED PATIENT SITTING ON DINING ROOM WATCHING TV/APPEAR CALM. PATIENT IS DISPLAYING NO S/S OF APPARENT DISTRESS AT THIS TIME. BREATHING IS EVEN AND UNLABORED WITH EQUAL RISE AND FALL OF THE CHEST. ALERT AND ORIENTED X 2-3 ON ROOM AIR WITH A SPO2 97%. NO S/S OF PAIN NOR DISCOMFORT. PATIENT IS COMPLIANT WITH MEDICATIONS, PARANOID, ANXIOUS AT TIMES, MAKES NEEDS KNOWN, AND COOPERATIVE. PATIENT DENIES SUICIDAL AND HOMICIDAL IDEATIONS AT THIS TIME. PATIENT HAS NO NEEDS AT THIS TIME. WILL CONTINUE TO MONITOR THIS PATIENT Q15 MINUTES WITH THE HELP OF STAFF TO MAINTAIN SAFETY.
[2022-08-16 20:51] VITALS: BP 140/66
[2022-08-16] MEDS: MIRTAZAPINE 15 MG TABLET PO SCH (21:13)
[2022-08-16] MEDS: OLANZAPINE 5 MG TABLET PO SCH (21:13)
[2022-08-17 08:00] VITALS: BP 114/63
[2022-08-17] MEDS: ENSURE ENLIVE 237 ML LIQUID (VANILLA) PO SCH ×2 (08:05→16:06)
[2022-08-17] MEDS: OLANZAPINE 2.5 MG TABLET PO SCH ×2 (08:13→16:06)
[2022-08-17 16:00] VITALS: BP 100/55
[2022-08-17 20:25] VITALS: BP 105/61
[2022-08-17] MEDS: OLANZAPINE 5 MG TABLET PO SCH (21:11)
[2022-08-17] MEDS: MIRTAZAPINE 15 MG TABLET PO SCH (21:11)
[2022-08-18 08:00] VITALS: BP 115/64
[2022-08-18] MEDS: OLANZAPINE 2.5 MG TABLET PO SCH ×2 (08:30→16:58)
[2022-08-18] MEDS: ENSURE ENLIVE 237 ML LIQUID (VANILLA) PO SCH ×2 (08:30→16:58)
[2022-08-18 16:00] VITALS: BP 107/61
[2022-08-18 20:29] VITALS: BP 105/55
[2022-08-18] MEDS: OLANZAPINE 5 MG TABLET PO SCH (21:33)
[2022-08-18] MEDS: MIRTAZAPINE 15 MG TABLET PO SCH (21:33)
[2022-08-19] MEDS: ENSURE ENLIVE 237 ML LIQUID (VANILLA) PO SCH ×2 (07:58→17:05)
[2022-08-19 08:00] VITALS: BP 104/60
[2022-08-19] MEDS: OLANZAPINE 2.5 MG TABLET PO SCH ×2 (09:44→17:06)
[2022-08-19 16:00] VITALS: BP 100/58
[2022-08-19 19:27] VITALS: BP 114/69
[2022-08-19] MEDS: MIRTAZAPINE 15 MG TABLET PO SCH (21:01)
[2022-08-19] MEDS: OLANZAPINE 5 MG TABLET PO SCH (21:01)
[2022-08-20] MEDS: ENSURE ENLIVE 237 ML LIQUID (VANILLA) PO SCH (07:42)
[2022-08-20 08:00] VITALS: BP 117/63
--- NOTE | 2022-08-20 08:08 | NUR ---
SW Discharge Note: Patient will be discharged to alf facility, [facility], located at [facility] [place] [address] ([phone]). Please arrange ambulance transportation at 1PM. [employer] worker spoke with Katina duke ([phone]), who stated patient will be accepted at the facility today. Patients brother Sherif ([phone]) is aware and agreeable. Patient is alert and oriented x2 and is unable to plan for self-care. Patient denies any suicidal or homicidal ideation. Patient is aware and agreeable with discharge plans. Patient will follow-up at the facility with Dr. Mensah (psychiatrist) [address] [address]; ([phone]) and ([place]) Dr. Ryan [address] [facility] [address], [place] [address]; ([phone]).
[2022-08-20] MEDS: OLANZAPINE 2.5 MG TABLET PO SCH (08:36)
--- NOTE | 2022-08-20 09:27 | NUR ---
RN-CO: Patient is aware of her discharge to [facility]. Patient is calm and cooperative to care. She improved a lot during her stay in the unit. She denies suicidal and homicidal ideations. She also denies auditory and visual hallucinations. No acute distress noted. Dr Mensah gave the order to discontinue hold and discharge patient today, noted and carried out. Balbina Schwarz NP medically cleared patient for discharge. All belongings will be given back to the patient and I will give the report to receiving nurse at the convalescent place.
--- NOTE | 2022-08-20 11:18 | NUR ---
RN-CO: REPORT WAS GIVEN TO ASHA.
--- NOTE | 2022-08-20 14:35 | NUR ---
RN-CO: [place] WAS P/U BY AMBULANCE AT 1430.
== END 2022-08-20 14:00 | DRG 885 ==
LOC: ER 15:05 → GPS 20:25
PROVIDERS: ADMIT Psychiatry & Neurology Psychiatry; ATTEND Nurse Practitioner Acute Care
DX: F25.1 Schizoaffective disorder, depressive type (principal); E43 Unspecified severe protein-calorie malnutrition; F03.92 Unspecified dementia, unspecified severity, with psychotic disturbance; R64 Cachexia; Z68.1 Body mass index [BMI] 19.9 or less, adult; E87.0 Hyperosmolality and hypernatremia; F29 Unspecified psychosis not due to a substance or known physiological condition; F22 Delusional disorders; R62.7 Adult failure to thrive; E86.1 Hypovolemia; R63.0 Anorexia; R79.89 Other specified abnormal findings of blood chemistry; Z20.822 Contact with and (suspected) exposure to COVID-19
CPT/HCPCS: 36415; 80048-TC; 80061-TC; 80076-TC; 81001; 82565-TC; 82962-TC; 85025-TC; 87081-TC; C9803; G0480; J7030